=== PATIENT | male | born 1980 | race Two or more races ===

== ENCOUNTER 2024-06-25 15:00 | Emergency (ER) | payer OTHER ==
[~2024-06-25] VITALS: Ht 185.4 cm; Wt 99.8 kg
[2024-06-25] MEDS ORDERED: OxyCODONE HCL/APAP UD (PERCOCET) PO ONE (16:45)
== END 2024-06-25 16:40 | disposition home or self-care (01) ==
LOC: EDBD 15:02 → ER 15:02
DX: K06.8 Other specified disorders of gingiva and edentulous alveolar ridge (principal)